=== PATIENT | male | born 1985 | race Caucasian/White ===

== ENCOUNTER → 2019-10-14 10:17 | Outpatient (BNVA) | payer MEDICARE, MEDICAID, SELFPAY | PROVIDERS: Family Provider Family Medicine; PCP Family Medicine; Visit Provider Nurse Practitioner | DX: F63.81 Intermittent explosive disorder (principal); F70 Mild intellectual disabilities; F91.3 Oppositional defiant disorder | CPT/HCPCS: 99213 ==

== ENCOUNTER → 2020-01-06 07:46 | Outpatient (BNVA) | payer MEDICARE, MEDICAID, SELFPAY | PROVIDERS: Family Provider Family Medicine; PCP Family Medicine; Visit Provider Nurse Practitioner | DX: F91.3 Oppositional defiant disorder (principal); F70 Mild intellectual disabilities; F63.81 Intermittent explosive disorder | CPT/HCPCS: 99213 ==

== ENCOUNTER → 2020-04-22 08:05 | Outpatient (BNVA) | payer MEDICARE, MEDICAID, SELFPAY | PROVIDERS: Family Provider Family Medicine; PCP Family Medicine; Visit Provider Nurse Practitioner | DX: F91.3 Oppositional defiant disorder (principal); F70 Mild intellectual disabilities; F63.81 Intermittent explosive disorder; Z79.899 Other long term (current) drug therapy | CPT/HCPCS: 99213 ==

== ENCOUNTER → 2021-04-21 07:38 | Outpatient (BNVA) | payer MEDICARE, MEDICAID, SELFPAY | PROVIDERS: Family Provider Family Medicine; PCP Family Medicine; Visit Provider Nurse Practitioner | DX: F63.81 Intermittent explosive disorder (principal); F70 Mild intellectual disabilities; F91.3 Oppositional defiant disorder | CPT/HCPCS: 99214 ==

== ENCOUNTER → 2021-06-07 06:53 | Outpatient (BNVA) | payer MEDICARE, MEDICAID, SELFPAY | PROVIDERS: Family Provider Family Medicine; PCP Family Medicine; Visit Provider Nurse Practitioner | DX: F91.3 Oppositional defiant disorder (principal); F70 Mild intellectual disabilities; F63.81 Intermittent explosive disorder | CPT/HCPCS: 99214 ==

== ENCOUNTER → 2021-08-03 07:26 | Outpatient (BNVA) | payer MEDICARE, MEDICAID, SELFPAY | PROVIDERS: Family Provider Family Medicine; PCP Family Medicine; Visit Provider Nurse Practitioner | DX: F91.3 Oppositional defiant disorder (principal); F70 Mild intellectual disabilities; F63.81 Intermittent explosive disorder | CPT/HCPCS: 99214 ==

== ENCOUNTER → 2021-12-31 07:29 | Outpatient (BNVA) | payer MEDICARE, MEDICAID, SELFPAY | PROVIDERS: Family Provider Family Medicine; PCP Family Medicine; Visit Provider Nurse Practitioner | DX: F91.3 Oppositional defiant disorder (principal); F63.81 Intermittent explosive disorder; F70 Mild intellectual disabilities | CPT/HCPCS: 99214 ==